=== PATIENT | female | born 1950 | race Caucasian/White ===

== ENCOUNTER 2020-10-03 19:50 | Inpatient (IN) ==
[2020-10-03] MEDS ORDERED: INDOMETHACIN SUPP 50 MG SUPP RECTAL ONE ×2 (21:40→21:46)
[2020-10-03] MEDS: SODIUM CHLORIDE 0.9% 1,000 ML IV SCH (22:51)
[2020-10-03] MEDS ORDERED: ETOMIDATE 40 MG/20 ML VIAL IV ONE (22:56)
[2020-10-03] MEDS ORDERED: SEVOFLURANE 1 UNIT/15 MINUTE INH ONE (22:56)
[2020-10-03] MEDS ORDERED: ROCURONIUM 50 MG/5 ML VIAL IV ONE (22:56)
[2020-10-03] MEDS ORDERED: ONDANSETRON 4 MG/2 ML VIAL ONE (22:56)
[2020-10-03] MEDS ORDERED: LIDOCAINE 2% 5 ML VIAL ONE (22:56)
[2020-10-03] MEDS ORDERED: propofoL 200 MG/20 ML VIAL IV ONE (22:56)
[2020-10-03] MEDS ORDERED: SUCCINYLCHOLINE 200 MG/10 ML VIAL ONE (22:56)
[2020-10-03] MEDS ORDERED: DOCUSATE SODIUM 100 MG CAPSULE PO PRN (22:58)
[2020-10-03] MEDS ORDERED: ALBUTEROL 2.5 MG/3 ML NEB RESP TX PRN (22:58)
[2020-10-04] MEDS ORDERED: CIPROFLOXACIN INJ 400 MG in PREMIX 1 EACH IV SCH
[2020-10-04] MEDS ORDERED: MEROPENEM 500 MG in SODIUM CHLORIDE 0.9% 100 ML IV SCH
[2020-10-04 00:25] LABS: Bilirubin,Urine Negative (Negative); Blood, Urine Moderate mg/dL (Negative); Glucose,Urine (UA) Negative (Negative); Ketones,Urine Negative (Negative); Mucus,Urine Moderate /LPF (Occasional); Nitrite,Urine Negative (Negative); Protein,Urine 100 MG/DL; RBC,Urine 238 /HPF (0-4); Squamous Epithelial Cell,Urine Moderate /HPF (0-10); Urine Appearance CLOUDY (Clear); Urine Color Yellow (Yellow); Urine Specific Gravity 1.008 (1.001-1.035); Urine Urobilinogen < 2.0 EU/DL (0.2-1.0); WBC,Urine 1684 /HPF (0-6)
[2020-10-04] MEDS: PHENYLEPHRINE DRIP 40 MG/250 ML PREMIX IV PRN ×3 (00:28→15:50)
[2020-10-04] MEDS ORDERED: SODIUM CHLORIDE 0.9% 1,000 ML IV ONE (00:30)
[2020-10-04 00:42] LABS: Basophils # 0.1 10*3/uL (0.0-0.2); Basophils % 0.2 % (0.0-0.8); Hematocrit 30.7 VOL% (35.7-47.0); Hemoglobin 9.5 GM/DL (12.0-16.0); Immature Granulocytes % 6.9 %; Immature Granulocytes Absolute 2.68 #; Lymphocytes % 2.5 % (21.3-54.2); Mean Corpuscular HGB Conc 30.9 GM/DL (32-36); Mean Corpuscular Volume 104.1 FL (87-102); Monocytes % 7.5 % (1.7-12.7); Neutrophils % 82.9 % (38.7-73.9); Platelet Count 152 T/CUMM (130-400); Red Blood Count 2.95 MC/CUMM (3.8-5.5); Red Cell Distribution Width 15.6 % (9.3-17.3); White Blood Count 38.9 T/CUMM (4-12)
[2020-10-04 00:57] LABS: Bilirubin,Total 5.7 MG/DL (0.2-1.0); Calcium 8.4 MG/DL (8.5-10.1); Osmolality,Calculated 288.1 MOS/KG (273-304); Potassium 3.6 MMOL/L (3.5-5.1); Total Protein 5.8 G/DL (6.4-8.2)
[2020-10-04 00:58] LABS: INR 1.5; PT Patient Result 16.1 SECS (9.8-11.9)
[2020-10-04] MEDS: NOREPINEPHRINE 8 MG in SODIUM CHLORIDE 0.9% 242 ML IV SCH (01:08)
[2020-10-04] MEDS: SODIUM CHLORIDE 0.9% 1,000 ML IV SCH ×3 (01:23→17:50)
[2020-10-04] MEDS ORDERED: MAGNESIUM SULF RIDER 4 GM in PREMIX 1 EACH IV PRN (01:42)
[2020-10-04] MEDS: metroNIDAZOLE INJ 500 MG in PREMIX 1 EACH IV SCH ×3 (01:54→16:29)
[2020-10-04] MEDS: MAGNESIUM SULF RIDER 2 GM in PREMIX 1 EACH IV PRN ×2 (02:00→04:50)
[2020-10-04] MEDS ORDERED: DEXTROSE 50% 25 GM/50 ML VIAL IV PRN (02:13)
[2020-10-04] MEDS ORDERED: GLUCAGON 1 MG VIAL IM PRN (02:13)
[2020-10-04] MEDS: CIPROFLOXACIN INJ 400 MG in PREMIX 1 EACH IV SCH ×2 (03:00→21:30)
[2020-10-04 04:11] LABS: Basophils # 0.1 10*3/uL (0.0-0.2); Basophils % 0.2 % (0.0-0.8); Eosinophils % 0.1 % (0.00-10.9); Hematocrit 29.2 VOL% (35.7-47.0); Immature Granulocytes % 6.4 %; Immature Granulocytes Absolute 2.44 #; Lymphocytes # 1.4 10*3/uL (1.4-4.0); Lymphocytes % 3.6 % (21.3-54.2); Mean Corpuscular HGB Conc 30.8 GM/DL (32-36); Mean Corpuscular Volume 102.8 FL (87-102); Mean Platelet Volume 10.7 FL (9.6-12.0); Monocytes % 4.9 % (1.7-12.7); Neutrophils % 84.8 % (38.7-73.9); Platelet Count 141 T/CUMM (130-400); Red Blood Count 2.84 MC/CUMM (3.8-5.5); Red Cell Distribution Width 15.4 % (9.3-17.3)
[2020-10-04 04:31] LABS: Albumin 1.9 G/DL (3.4-5.0); Bilirubin,Total 4.4 MG/DL (0.2-1.0); Calcium 7.8 MG/DL (8.5-10.1); Potassium 3.8 MMOL/L (3.5-5.1); Risk Ratio 4.1; Total Protein 5.5 G/DL (6.4-8.2); VLDL CHOLESTEROL 20.4 MG/DL
[2020-10-04] MEDS: FLUCONAZOLE INJ 100 MG in IV BAG 1 EACH IV SCH (04:49)
[2020-10-04 05:17] LABS: Band Neutrophils 7 % (0-10); Eosinophils 2 % (0-10); Hypochromasia 1+; Lymphocytes 4 % (20-55); Microcytosis 1+; Platelet Estimate Adequate; Segmented Neutrophils 80 % (50-85); Total Cells Counted 100
[2020-10-04 05:31] LABS: Band Neutrophils 18 % (0-10); Hypochromasia Slight; Lymphocytes 2 % (20-55); Metamyelocytes 1 %; Segmented Neutrophils 73 % (50-85); Total Cells Counted 100
[2020-10-04 05:32] LABS: Microcytosis 1+; Platelet Estimate Adequate; Polychromasia Slight
[2020-10-04] MEDS: LEVOTHYROXINE 100 MCG VIAL IV SCH (06:45)
[2020-10-04] MEDS: INSULIN LISPRO 100 UNIT/ML SUBCUT SCH ×4 (08:45→20:49)
[2020-10-04] MEDS ORDERED: SODIUM CHLORIDE 0.9% 500 ML IV ONE (20:31)
[2020-10-04] MEDS: ONDANSETRON 4 MG/2 ML VIAL IV PRN (22:28)
[2020-10-05] MEDS: NOREPINEPHRINE 8 MG in SODIUM CHLORIDE 0.9% 242 ML IV SCH (00:56)
[2020-10-05] MEDS: SODIUM CHLORIDE 0.9% 1,000 ML IV SCH (01:26)
[2020-10-05] MEDS: INSULIN LISPRO 100 UNIT/ML SUBCUT SCH ×4 (01:26→14:06)
[2020-10-05] MEDS: metroNIDAZOLE INJ 500 MG in PREMIX 1 EACH IV SCH ×4 (01:29→18:02)
[2020-10-05] MEDS: MELATONIN 3 MG TABLET PO PRN (02:18)
[2020-10-05] MEDS: GABAPENTIN 100 MG CAPSULE PO SCH ×4 (02:18→20:38)
[2020-10-05] MEDS: FLUCONAZOLE INJ 100 MG in IV BAG 1 EACH IV SCH (05:00)
[2020-10-05] MEDS: LEVOTHYROXINE 100 MCG VIAL IV SCH (06:40)
[2020-10-05] MEDS: ONDANSETRON 4 MG/2 ML VIAL IV PRN (06:42)
[2020-10-05 07:15] LABS: Albumin 1.6 G/DL (3.4-5.0); Basophils # 0.1 10*3/uL (0.0-0.2); Basophils % 0.4 % (0.0-0.8); Bilirubin,Total 1.6 MG/DL (0.2-1.0); Calcium 7.9 MG/DL (8.5-10.1); Eosinophils # 0.2 10*3/uL (0.0-0.87); Eosinophils % 1.3 % (0.00-10.9); Hematocrit 26.9 VOL% (35.7-47.0); Immature Granulocytes % 1.6 %; Immature Granulocytes Absolute 0.25 #; Lymphocytes # 0.9 10*3/uL (1.4-4.0); Lymphocytes % 5.5 % (21.3-54.2); Mean Corpuscular HGB Conc 29.7 GM/DL (32-36); Mean Corpuscular Volume 105.1 FL (87-102); Mean Platelet Volume 11.4 FL (9.6-12.0); Monocytes % 6.2 % (1.7-12.7); Osmolality,Calculated 291.7 MOS/KG (273-304); Platelet Count 114 T/CUMM (130-400); Potassium 4.1 MMOL/L (3.5-5.1); Red Blood Count 2.56 MC/CUMM (3.8-5.5); Red Cell Distribution Width 15.5 % (9.3-17.3); Total Protein 4.9 G/DL (6.4-8.2)
[2020-10-05 07:16] LABS: White Blood Count 15.8 T/CUMM (4-12)
[2020-10-05 07:27] LABS: Hypochromasia 2+; Lymphocytes 10 % (20-55); Microcytosis 1+; Platelet Estimate Decreased; Segmented Neutrophils 83 % (50-85); Total Cells Counted 100
[2020-10-05] MEDS: LACTATED RINGERS 1,000 ML IV SCH ×2 (08:23→16:09)
[2020-10-05] MEDS: CIPROFLOXACIN INJ 400 MG in PREMIX 1 EACH IV SCH (16:07)
[2020-10-06] MEDS: LACTATED RINGERS 1,000 ML IV SCH ×3 (00:10→17:33)
[2020-10-06] MEDS: metroNIDAZOLE INJ 500 MG in PREMIX 1 EACH IV SCH ×3 (01:23→17:33)
[2020-10-06] MEDS: FLUCONAZOLE INJ 100 MG in IV BAG 1 EACH IV SCH (04:42)
[2020-10-06 05:03] LABS: Basophils # 0.1 10*3/uL (0.0-0.2); Basophils % 0.5 % (0.0-0.8); Eosinophils # 0.2 10*3/uL (0.0-0.87); Eosinophils % 1.3 % (0.00-10.9); Hematocrit 26.4 VOL% (35.7-47.0); Hemoglobin 8.1 GM/DL (12.0-16.0); Immature Granulocytes % 1.5 %; Immature Granulocytes Absolute 0.19 #; Lymphocytes % 8.4 % (21.3-54.2); Mean Corpuscular HGB Conc 30.7 GM/DL (32-36); Mean Corpuscular Volume 102.7 FL (87-102); Mean Platelet Volume 11.4 FL (9.6-12.0); Monocytes % 8.3 % (1.7-12.7); Platelet Count 111 T/CUMM (130-400); Red Blood Count 2.57 MC/CUMM (3.8-5.5); Red Cell Distribution Width 15.7 % (9.3-17.3); White Blood Count 12.4 T/CUMM (4-12)
[2020-10-06 05:22] LABS: Albumin 1.7 G/DL (3.4-5.0); Calcium 8.2 MG/DL (8.5-10.1); Eosinophils 3 % (0-10); Hypochromasia Slight; Lymphocytes 10 % (20-55); Osmolality,Calculated 292.4 MOS/KG (273-304); Potassium 4.1 MMOL/L (3.5-5.1); Segmented Neutrophils 80 % (50-85); Total Cells Counted 100; Total Protein 5.1 G/DL (6.4-8.2)
[2020-10-06 05:23] LABS: Microcytosis 1+; Platelet Estimate Decreased; Polychromasia Slight
[2020-10-06] MEDS: LEVOTHYROXINE 100 MCG VIAL IV SCH (06:12)
[2020-10-06] MEDS: GABAPENTIN 100 MG CAPSULE PO SCH ×3 (08:06→21:22)
[2020-10-06] MEDS: CIPROFLOXACIN INJ 400 MG in PREMIX 1 EACH IV SCH (09:24)
[2020-10-06] MEDS: ACETAMINOPHEN 325 MG TABLET PO PRN ×2 (14:59→21:22)
[2020-10-06] MEDS: MELATONIN 3 MG TABLET PO PRN (21:22)
[2020-10-07] MEDS: metroNIDAZOLE INJ 500 MG in PREMIX 1 EACH IV SCH ×3 (00:32→17:11)
[2020-10-07] MEDS: CIPROFLOXACIN INJ 400 MG in PREMIX 1 EACH IV SCH ×2 (03:01→19:44)
[2020-10-07] MEDS: LACTATED RINGERS 1,000 ML IV SCH ×3 (03:48→17:11)
[2020-10-07 05:18] LABS: Basophils # 0.1 10*3/uL (0.0-0.2); Eosinophils # 0.3 10*3/uL (0.0-0.87); Eosinophils % 2.1 % (0.00-10.9); Hematocrit 28.5 VOL% (35.7-47.0); Immature Granulocytes % 3.3 %; Immature Granulocytes Absolute 0.39 #; Lymphocytes # 1.7 10*3/uL (1.4-4.0); Lymphocytes % 14.5 % (21.3-54.2); Mean Corpuscular HGB Conc 31.6 GM/DL (32-36); Mean Corpuscular Volume 99.7 FL (87-102); Mean Platelet Volume 12.6 FL (9.6-12.0); Monocytes % 9.3 % (1.7-12.7); Neutrophils % 69.8 % (38.7-73.9); Platelet Count 94 T/CUMM (130-400); Red Blood Count 2.86 MC/CUMM (3.8-5.5); Red Cell Distribution Width 15.5 % (9.3-17.3)
[2020-10-07 05:31] LABS: Albumin 1.9 G/DL (3.4-5.0); Bilirubin,Total 0.8 MG/DL (0.2-1.0); Calcium 8.4 MG/DL (8.5-10.1); Osmolality,Calculated 284.8 MOS/KG (273-304); Potassium 4.2 MMOL/L (3.5-5.1); Total Protein 5.4 G/DL (6.4-8.2)
[2020-10-07 06:50] LABS: Hypochromasia 1+; Microcytosis 1+; Platelet Estimate Decreased
[2020-10-07] MEDS: FLUCONAZOLE INJ 100 MG in IV BAG 1 EACH IV SCH (07:52)
[2020-10-07] MEDS: LEVOTHYROXINE 100 MCG VIAL IV SCH (09:11)
[2020-10-07] MEDS: GABAPENTIN 100 MG CAPSULE PO SCH ×3 (09:12→20:25)
[2020-10-07] MEDS ORDERED: LIDOCAINE 2% 5 ML VIAL ONE (13:23)
[2020-10-07] MEDS ORDERED: fentaNYL 100 MCG/2 ML VIAL ONE ×2 (13:23→14:15)
[2020-10-07] MEDS ORDERED: propofoL 200 MG/20 ML VIAL IV ONE (13:23)
[2020-10-07] MEDS ORDERED: ROCURONIUM 50 MG/5 ML VIAL IV ONE (13:23)
[2020-10-07] MEDS ORDERED: MIDAZOLAM 2 MG/2 ML VIAL ONE (13:23)
[2020-10-07] MEDS ORDERED: LIDOCAINE 1%/EPI INJ 20 ML VIAL ONE (13:29)
[2020-10-07] MEDS ORDERED: BUPIVACAINE MPF 0.25% 30 ML VIAL ONE (13:29)
[2020-10-07] MEDS ORDERED: ESMOLOL 100 MG/10 ML VIAL IV ONE ×2 (14:26→14:27)
[2020-10-07] MEDS ORDERED: ONDANSETRON 4 MG/2 ML VIAL ONE (14:35)
[2020-10-07] MEDS ORDERED: DEXAMETHASONE 4 MG/1 ML VIAL ONE (14:50)
[2020-10-07] MEDS ORDERED: SEVOFLURANE 1 UNIT/15 MINUTE INH ONE (15:09)
[2020-10-07] MEDS ORDERED: GLYCOPYRROLATE 0.4 MG/2 ML VIAL ONE (15:51)
[2020-10-07] MEDS ORDERED: NEOSTIGMINE 10 MG/10 ML VIAL ONE (15:51)
[2020-10-07] MEDS: MELATONIN 3 MG TABLET PO PRN (20:25)
[2020-10-07] MEDS ORDERED: QUEtiapine 100 MG TABLET PO SCH (21:00)
[2020-10-08] MEDS: metroNIDAZOLE INJ 500 MG in PREMIX 1 EACH IV SCH (02:01)
[2020-10-08] MEDS: LACTATED RINGERS 1,000 ML IV SCH ×2 (02:02→12:11)
[2020-10-08] MEDS: FLUCONAZOLE INJ 100 MG in IV BAG 1 EACH IV SCH (04:24)
[2020-10-08 05:50] LABS: Basophils % 0.2 % (0.0-0.8); Hematocrit 28.8 VOL% (35.7-47.0); Hemoglobin 8.7 GM/DL (12.0-16.0); Immature Granulocytes % 3.3 %; Immature Granulocytes Absolute 0.45 #; Lymphocytes % 7.7 % (21.3-54.2); Mean Corpuscular HGB Conc 30.2 GM/DL (32-36); Mean Corpuscular Volume 102.5 FL (87-102); Mean Platelet Volume 11.6 FL (9.6-12.0); Monocytes % 5.1 % (1.7-12.7); Neutrophils % 83.7 % (38.7-73.9); Platelet Count 170 T/CUMM (130-400); Red Blood Count 2.81 MC/CUMM (3.8-5.5); Red Cell Distribution Width 15.4 % (9.3-17.3); White Blood Count 13.5 T/CUMM (4-12)
[2020-10-08 06:07] LABS: Bilirubin,Total 0.9 MG/DL (0.2-1.0); Calcium 8.4 MG/DL (8.5-10.1); Osmolality,Calculated 293.6 MOS/KG (273-304); Potassium 4.2 MMOL/L (3.5-5.1)
[2020-10-08] MEDS: GABAPENTIN 100 MG CAPSULE PO SCH ×2 (08:56→14:46)
[2020-10-08] MEDS: LEVOTHYROXINE 100 MCG VIAL IV SCH (08:57)
[2020-10-08] MEDS ORDERED: PARoxetine 20 MG TABLET PO SCH (09:00)
[2020-10-08] MEDS ORDERED: VANCOMYCIN INJ 1,500 MG in SODIUM CHLORIDE 0.9% 500 ML IV SCH (11:00)
[2020-10-08 15:54] VITALS: BP 118/68
== END 2020-10-08 17:55 | disposition home health service (06) | DRG 853 ==
LOC: N.ICU 20:42 → SUATTDRO 21:01 → N.5E 10-06 14:26
PROVIDERS: ADMIT Internal Medicine; ATTEND Internal Medicine Geriatric Medicine
PROC: ERCPWSP (ICD-10-PCS; 2020-10-03 21:00)
PROC: LAPCHOL (2020-10-07 13:45)